=== PATIENT | male | born 1980 | race Caucasian/White ===

== ENCOUNTER 2019-03-05 19:32 | Emergency (ER) | payer MEDICARE, MEDICAID ==
[~2019-03-05] VITALS: Ht 175.3 cm; Wt 65.9 kg
[2019-03-05] MEDS ORDERED: VENL-68 PO (19:45)
[2019-03-05] MEDS ORDERED: GABA-531 PO (19:45)
[2019-03-05] MEDS ORDERED: HYDR50CA10 PO (19:45)
[2019-03-05] MEDS ORDERED: BICT1TAB PO (19:45)
[2019-03-05] MEDS ORDERED: LISI-662 PO (19:45)
[2019-03-05] MEDS ORDERED: TRAZ150 PO (19:45)
[2019-03-05] MEDS ORDERED: ONDANSETRON HCL 4 MG/2 ML VIAL IVP ONE (20:15)
[2019-03-05] MEDS ORDERED: DIPHENOXYLATE/ATROP 2.5-0.025 MG TABLET PO ONE (20:15)
[2019-03-05] MEDS ORDERED: SODIUM CHLORIDE 0.9% 1,000 ML IV ONE (20:15)
[2019-03-05 20:21] LABS: BASOPHILS % (AUTO) 0.3 % (0.0-2.0); EOSINOPHILS % (AUTO) 0.9 % (1.0-6.0); HEMATOCRIT 47.5 % (41-53); LYMPHOCYTES # (AUTO) 1.8 K/uL (1.0-4.8); LYMPHOCYTES % (AUTO) 20.4 % (22.0-44.0); MEAN CORPUSCULAR HEMOGLOBIN 32.6 pg (26.0-34.0); MEAN CORPUSCULAR HGB CONC 33.8 G/dL (31.0-37.0); MEAN CORPUSCULAR VOLUME 97 fL (80-100); MONOCYTES # (AUTO) 0.8 K/uL (0.1-1.0); MONOCYTES % (AUTO) 8.8 % (2.0-9.0); NEUTROPHILS % (AUTO) 69.6 % (40.0-70.0); PLATELET COUNT (AUTO) 307 K/uL (150-450); RED BLOOD CELL COUNT(AUTO) 4.92 MIL/uL (4.50-5.90)
[2019-03-05 20:24] LABS: APPEARANCE,URINE CLEAR (CLEAR); BILIRUBIN,URINE NEGATIVE (NEGATIVE); GLUCOSE, URINE (UA) NEGATIVE (NEGATIVE); KETONES,URINE NEGATIVE (NEGATIVE); LEUKOCYTE ESTERASE ,URINE NEGATIVE (NEGATIVE); NITRATE,URINE NEGATIVE (NEGATIVE); OCCULT BLOOD,URINE NEGATIVE (NEGATIVE); PROTEIN,URINE NEGATIVE (NEGATIVE); UROBILINOGEN,URINE 0.2 mg/dL (<=1.0)
[2019-03-05 20:33] LABS: ANION GAP 8 mmol/L (8-16); CALCIUM, TOTAL 9.9 mg/dL (8.8-10.5); CARBON DIOXIDE 30 mmol/L (22-29); CHLORIDE 99 mmol/L (98-107); CREATININE 1.07 mg/dL (0.60-1.30); GLOMERULAR FILTR. RATE CALC > 60 mL/min (>60); GLUCOSE,RANDOM 93 mg/dL (70-110); POTASSIUM 4.4 mmol/L (3.5-5.1); SODIUM SERUM 137 mmol/L (136-145); UREA NITROGEN, BLOOD 12 mg/dL (7-18)
[2019-03-05 20:41] LABS: ALANINE AMINOTRANSFERASE 24 U/L (12-78); ALBUMIN 4.3 g/dL (3.4-5.0); ALKALINE PHOSPHATASE 75 U/L (46-116); ASPARTATE AMINOTRANSFERASE 21 U/L (15-37); BILIRUBIN,TOTAL 0.2 mg/dL (0.1-1.0); LIPASE 435 U/L (73-393); TOTAL PROTEIN, SERUM 8.3 g/dL (6.4-8.2)
[2019-03-05] MEDS ORDERED: PB/HYOSCY/ATR/SCOP/LIDO/MAALOX 55 ML BOTTLE PO ONE (21:15)
[2019-03-05 22:27] VITALS: BP 129/87
== END 2019-03-05 23:03 | disposition home or self-care (01) ==
LOC: EMS 19:35
DX: R11.2 Nausea with vomiting, unspecified (principal); R19.7 Diarrhea, unspecified; I10 Essential (primary) hypertension; Z79.899 Other long term (current) drug therapy
CPT/HCPCS: 36415; 80053; 81003; 83690; 85025; 93005; 96361; 96374; 99285; J2405; J7030

== ENCOUNTER 2019-03-08 20:55 | Emergency (ER) | payer MEDICAID, MEDICARE ==
[~2019-03-08] VITALS: Ht 175.3 cm; Wt 65.9 kg
[~2019-03-08 20:55] MED LIST: BICT1TAB PO; GABA-531 PO; HYDR50CA10 PO; LISI-662 PO; TRAZ150 PO; VENL-68 PO
[2019-03-08 22:08] VITALS: BP 110/72
== END 2019-03-08 22:57 | disposition home or self-care (01) ==
LOC: EMS 20:56
DX: F41.9 Anxiety disorder, unspecified (principal); I10 Essential (primary) hypertension; F12.90 Cannabis use, unspecified, uncomplicated; F15.90 Other stimulant use, unspecified, uncomplicated

== ENCOUNTER 2020-02-23 20:39 | Inpatient (IN) | payer MEDICAID ==
[~2020-02-23] VITALS: Ht 175.3 cm; Wt 80.0 kg
[~2020-02-23 20:39] MED LIST changes: -HYDR50CA10 PO; +HYDR50CA9 PO
[2020-02-23 21:27] LABS: BASOPHILS % (AUTO) 0.7 % (0.0-2.0); EOSINOPHILS % (AUTO) 0.2 % (1.0-6.0); HEMATOCRIT 48.7 % (41-53); HEMOGLOBIN 16.4 g/dL (13.5-17.5); LYMPHOCYTES # (AUTO) 2.3 K/uL (1.0-4.8); MEAN CORPUSCULAR HEMOGLOBIN 33.2 pg (26.0-34.0); MEAN CORPUSCULAR HGB CONC 33.6 G/dL (31.0-37.0); MEAN CORPUSCULAR VOLUME 99 fL (80-100); MONOCYTES # (AUTO) 0.3 K/uL (0.1-1.0); MONOCYTES % (AUTO) 3.9 % (2.0-9.0); NEUTROPHILS # (AUTO) 4.3 K/uL (1.8-7.7); NEUTROPHILS % (AUTO) 62.2 % (40.0-70.0); PLATELET COUNT (AUTO) 261 K/uL (150-450); RED BLOOD CELL COUNT(AUTO) 4.92 MIL/uL (4.50-5.90); RED CELL DISTRIBUTION WIDTH 13.6 % (11.5-14.5)
[2020-02-23 22:02] LABS: ANION GAP 19 mmol/L (8-16); CALCIUM, TOTAL 8.7 mg/dL (8.8-10.5); CARBON DIOXIDE 22 mmol/L (22-29); CHLORIDE 103 mmol/L (98-107); CREATININE 0.97 mg/dL (0.60-1.30); GLOMERULAR FILTR. RATE CALC > 60 mL/min (>60); GLUCOSE,RANDOM 100 mg/dL (70-110); POTASSIUM 3.7 mmol/L (3.5-5.1); SODIUM SERUM 144 mmol/L (136-145); UREA NITROGEN, BLOOD 10 mg/dL (7-18)
[2020-02-23 22:07] LABS: ALANINE AMINOTRANSFERASE 40 U/L (12-78); ALBUMIN 4.4 g/dL (3.4-5.0); ALKALINE PHOSPHATASE 69 U/L (46-116); ASPARTATE AMINOTRANSFERASE 32 U/L (15-37); BILIRUBIN,TOTAL 0.2 mg/dL (0.1-1.0)
[2020-02-24] VITALS (8 sets, daily range): BP systolic 105–165; BP diastolic 76–103
[2020-02-24] MEDS ORDERED: LORazepam 2 MG TABLET PO PRN ×2 (00:15→10:00)
[2020-02-24] MEDS ORDERED: HALOPERIDOL 5 MG TABLET PO PRN (00:15)
[2020-02-24] MEDS ORDERED: ZOLPIDEM TARTRATE 10 MG TABLET PO PRN (00:15)
[2020-02-24] MEDS ORDERED: LORazepam 2 MG TABLET PO ONE (05:15)
[2020-02-24] MEDS: LISINOPRIL 20 MG TABLET PO SCH (12:01)
[2020-02-24] MEDS: GABAPENTIN 300 MG CAPSULE PO SCH ×2 (12:01→16:20)
[2020-02-24] MEDS: HydrOXYzine PAMOATE 50 MG CAPSULE PO SCH ×2 (12:01→16:20)
[2020-02-24] MEDS: TOPIRAMATE 25 MG TABLET PO SCH (16:19)
[2020-02-24] MEDS ORDERED: TraZODone HCL 150 MG TABLET PO SCH (21:00)
[2020-02-24] MEDS ORDERED: VENLAFAXINE HCL 150 MG ER CAPSULE PO SCH (21:00)
[2020-02-25 00:25] VITALS: BP 140/72
[2020-02-25 04:25] VITALS: BP 122/83
[2020-02-25] MEDS ORDERED: LORazepam 2 MG TABLET PO PRN (07:00)
[2020-02-25 08:23] VITALS: BP 160/87
[2020-02-25 08:30] VITALS: BP 160/87
[2020-02-25] MEDS ORDERED: ACETAMINOPHEN 325 MG TABLET PO PRN (08:30)
[2020-02-25] MEDS ORDERED: DOCUSATE SODIUM 100 MG CAPSULE PO PRN (08:30)
[2020-02-25] MEDS ORDERED: GuaiFENesin/D-METHORPHAN [SUGAR-FREE] 200-20MG/10 ML SYRUP UDCUP PO PRN (08:30)
[2020-02-25] MEDS ORDERED: NICOTINE 14 MG/24 HOUR PATCH TD PRN (08:30)
[2020-02-25] MEDS ORDERED: IBUPROFEN 400 MG TABLET PO PRN (08:30)
[2020-02-25] MEDS ORDERED: ONDANSETRON HCL 4 MG TABLET PO PRN (08:30)
[2020-02-25] MEDS ORDERED: ALBUTEROL SULFATE HFA 90 MCG/PUFF 8 GM INHALER IH PRN (08:30)
[2020-02-25] MEDS ORDERED: CloNIDine HCL 0.1 MG TABLET PO PRN (08:30)
[2020-02-25] MEDS ORDERED: MAG HYDROX/AL HYDROX/SIMETH ES 30 ML SUSPENSION UDCUP PO PRN (08:30)
[2020-02-25] MEDS ORDERED: MAGNESIUM HYDROXIDE SUSPENSION 30 ML UDCUP PO PRN (08:30)
[2020-02-25] MEDS ORDERED: LOPERAMIDE HCL 2 MG CAPSULE PO PRN (08:30)
[2020-02-25] MEDS ORDERED: PETROLATUM,WHITE 28 GM JELLY TP PRN (08:30)
[2020-02-25] MEDS: GABAPENTIN 300 MG CAPSULE PO SCH ×3 (08:51→16:22)
[2020-02-25] MEDS: LORazepam 2 MG TABLET PO SCH ×4 (08:51→20:20)
[2020-02-25] MEDS: HydrOXYzine PAMOATE 50 MG CAPSULE PO SCH ×3 (08:51→16:22)
[2020-02-25] MEDS: TOPIRAMATE 25 MG TABLET PO SCH ×2 (08:52→16:22)
[2020-02-25] MEDS: LISINOPRIL 20 MG TABLET PO SCH (08:52)
[2020-02-25] MEDS ORDERED: LISINOPRIL 20 MG TABLET PO SCH (09:00)
[2020-02-25 09:43] LABS: CHOL/HDL RATIO 3.6 (4.2-7.3)
[2020-02-25] MEDS: BICTEGRAV/EMTRICIT/TENOFOV ALA 50-200-25 MG TABLET PO SCH (15:26)
[2020-02-25 17:29] VITALS: BP 108/76
[2020-02-25 20:01] VITALS: BP 108/76
[2020-02-25] MEDS: TraZODone HCL 100 MG TABLET PO SCH (20:20)
[2020-02-26 01:28] VITALS: BP 99/70
[2020-02-26 08:08] VITALS: BP 125/82
[2020-02-26 08:39] VITALS: BP 125/82
[2020-02-26] MEDS: TOPIRAMATE 25 MG TABLET PO SCH ×2 (09:03→17:24)
[2020-02-26] MEDS: LISINOPRIL 20 MG TABLET PO SCH (09:03)
[2020-02-26] MEDS: GABAPENTIN 300 MG CAPSULE PO SCH ×3 (09:03→17:24)
[2020-02-26] MEDS: BICTEGRAV/EMTRICIT/TENOFOV ALA 50-200-25 MG TABLET PO SCH (09:03)
[2020-02-26] MEDS: FLUoxetine HCL 20 MG CAPSULE PO SCH (09:04)
[2020-02-26] MEDS: LORazepam 2 MG TABLET PO SCH ×4 (09:04→20:31)
[2020-02-26] MEDS: HydrOXYzine PAMOATE 50 MG CAPSULE PO SCH ×3 (09:04→17:24)
[2020-02-26 17:20] VITALS: BP 108/74
[2020-02-26 19:18] VITALS: BP 102/62
[2020-02-26] MEDS: TraZODone HCL 100 MG TABLET PO SCH (20:31)
[2020-02-27 00:08] VITALS: BP 100/68
[2020-02-27 00:09] VITALS: BP 100/68
[2020-02-27] MEDS ORDERED: LORazepam 1 MG TABLET PO PRN (07:00)
[2020-02-27] MEDS: FLUoxetine HCL 20 MG CAPSULE PO SCH (08:44)
[2020-02-27] MEDS: TOPIRAMATE 25 MG TABLET PO SCH (08:44)
[2020-02-27] MEDS: HydrOXYzine PAMOATE 50 MG CAPSULE PO SCH (08:44)
[2020-02-27] MEDS: GABAPENTIN 300 MG CAPSULE PO SCH (08:44)
[2020-02-27] MEDS: LISINOPRIL 20 MG TABLET PO SCH (08:44)
[2020-02-27] MEDS: BICTEGRAV/EMTRICIT/TENOFOV ALA 50-200-25 MG TABLET PO SCH (08:45)
[2020-02-27] MEDS ORDERED: LORazepam 1 MG TABLET PO SCH (09:00)
[2020-02-27 09:01] VITALS: BP 112/79
[2020-02-27] MEDS ORDERED: FLUO-191 PO (09:51)
[2020-02-27] MEDS ORDERED: TOPI25 PO (09:51)
[2020-02-27] MEDS ORDERED: TRAZ-257 PO (09:52)
[2020-02-28] MEDS ORDERED: LORazepam 1 MG TABLET PO PRN (07:00)
== END 2020-02-27 14:27 | disposition home or self-care (01) | DRG 754 ==
LOC: EMS 20:41 → B2S 02-24 08:02
PROVIDERS: ADMIT Psychiatry & Neurology Psychiatry; ATTEND Psychiatry & Neurology Psychiatry
DX: F32.9 Major depressive disorder, single episode, unspecified (principal); R45.851 Suicidal ideations; G62.9 Polyneuropathy, unspecified; K75.9 Inflammatory liver disease, unspecified; I10 Essential (primary) hypertension; F12.90 Cannabis use, unspecified, uncomplicated; F15.90 Other stimulant use, unspecified, uncomplicated; F10.10 Alcohol abuse, uncomplicated; E78.5 Hyperlipidemia, unspecified; F19.10 Other psychoactive substance abuse, uncomplicated; Z21 Asymptomatic human immunodeficiency virus [HIV] infection status; Y90.8 Blood alcohol level of 240 mg/100 ml or more; Z91.5 Personal history of self-harm
CPT/HCPCS: 87081; G0480

== ENCOUNTER 2020-08-15 13:22 | Inpatient (IN) | payer MEDICAID ==
[~2020-08-15] VITALS: Ht 170.2 cm; Wt 77.5 kg
[~2020-08-15 13:22] MED LIST changes: +FLUO-191 PO; +GABA-1181 PO; -GABA-531 PO; -HYDR50CA9 PO; +TOPI25 PO; +TRAZ-257 PO; -TRAZ150 PO; -VENL-68 PO
[2020-08-15 14:44] LABS: BASOPHILS % (AUTO) 0.7 % (0.0-2.0); EOSINOPHILS % (AUTO) 0.1 % (1.0-6.0); HEMATOCRIT 47.4 % (41-53); LYMPHOCYTES # (AUTO) 2.1 K/uL (1.0-4.8); LYMPHOCYTES % (AUTO) 47.6 % (22.0-44.0); MEAN CORPUSCULAR HEMOGLOBIN 34.5 pg (26.0-34.0); MEAN CORPUSCULAR HGB CONC 33.8 G/dL (31.0-37.0); MEAN CORPUSCULAR VOLUME 102 fL (80-100); MONOCYTES # (AUTO) 0.3 K/uL (0.1-1.0); MONOCYTES % (AUTO) 6.2 % (2.0-9.0); NEUTROPHILS % (AUTO) 45.4 % (40.0-70.0); PLATELET COUNT (AUTO) 351 K/uL (150-450); RED BLOOD CELL COUNT(AUTO) 4.64 MIL/uL (4.50-5.90); RED CELL DISTRIBUTION WIDTH 13.6 % (11.5-14.5)
[2020-08-15 14:57] LABS: ANION GAP 15 mmol/L (8-16); CALCIUM, TOTAL 8.2 mg/dL (8.8-10.5); CARBON DIOXIDE 24 mmol/L (22-29); CHLORIDE 104 mmol/L (98-107); CREATININE 0.86 mg/dL (0.60-1.30); GLOMERULAR FILTR. RATE CALC > 60 mL/min (>60); GLUCOSE,RANDOM 105 mg/dL (70-110); POTASSIUM 3.9 mmol/L (3.5-5.1); SODIUM SERUM 143 mmol/L (136-145); UREA NITROGEN, BLOOD 4 mg/dL (7-18)
[2020-08-15 15:10] LABS: ALANINE AMINOTRANSFERASE 85 U/L (12-78); ALBUMIN 4.2 g/dL (3.4-5.0); ALKALINE PHOSPHATASE 79 U/L (46-116); ASPARTATE AMINOTRANSFERASE 83 U/L (15-37); BILIRUBIN,TOTAL 0.4 mg/dL (0.1-1.0); TOTAL PROTEIN, SERUM 7.9 g/dL (6.4-8.2)
[2020-08-15 15:12] LABS: AMPHET/METH SCREEN,URINE NEGATIVE (NEGATIVE); BARBITURATE SCREEN, URINE NEGATIVE (NEGATIVE); BENZODIAZEPINES SCREEN,URINE NEGATIVE (NEGATIVE); CANNABINOID SCREEN,URINE POSITIVE (NEGATIVE); COCAINE SCREEN,URINE NEGATIVE (NEGATIVE); METHADONE SCREEN, URINE NEGATIVE (NEGATIVE); OPIATE SCREEN,URINE NEGATIVE (NEGATIVE)
[2020-08-15 15:14] LABS: PHENCYCLIDINE SCREEN,URINE NEGATIVE (NEGATIVE)
[2020-08-15 15:26] LABS: ACETAMINOPHEN < 2 mcg/mL (10-30); SALICYLATE 1.8 mg/dL (2.8-20.0)
[2020-08-15] MEDS ORDERED: SODIUM CHLORIDE 0.9% 1,000 ML IV ONE (15:45)
[2020-08-15 16:27] LABS: COVID AG,FIA SOURCE NASOPHARYNGEAL
[2020-08-15] MEDS ORDERED: HALOPERIDOL 5 MG TABLET PO PRN (19:00)
[2020-08-15] MEDS ORDERED: LORazepam 2 MG/ML VIAL IVP ONE (20:45)
[2020-08-16] VITALS (10 sets, daily range): BP systolic 127–156; BP diastolic 65–99
[2020-08-16] MEDS: LORazepam 2 MG TABLET PO PRN ×4 (01:56→18:15)
[2020-08-16] MEDS: ZOLPIDEM TARTRATE 10 MG TABLET PO PRN ×2 (02:40→20:22)
[2020-08-16] MEDS ORDERED: LOPERAMIDE HCL 2 MG CAPSULE PO PRN (08:30)
[2020-08-16] MEDS ORDERED: ACETAMINOPHEN 325 MG TABLET PO PRN (08:30)
[2020-08-16] MEDS ORDERED: ONDANSETRON HCL 4 MG TABLET PO PRN (08:30)
[2020-08-16] MEDS ORDERED: MAGNESIUM HYDROXIDE SUSPENSION 30 ML UDCUP PO PRN (08:30)
[2020-08-16] MEDS ORDERED: CloNIDine HCL 0.1 MG TABLET PO PRN (08:30)
[2020-08-16] MEDS ORDERED: MAG HYDROX/AL HYDROX/SIMETH ES 30 ML SUSPENSION UDCUP PO PRN (08:30)
[2020-08-16] MEDS ORDERED: BACITRACIN 28 GM OINTMENT TP PRN (08:30)
[2020-08-16] MEDS ORDERED: IBUPROFEN 600 MG TABLET PO PRN (08:30)
[2020-08-16] MEDS ORDERED: DOCUSATE SODIUM 100 MG CAPSULE PO PRN (08:30)
[2020-08-16] MEDS ORDERED: PETROLATUM,WHITE 28 GM JELLY TP PRN (08:30)
[2020-08-16] MEDS ORDERED: ALBUTEROL SULFATE HFA 90 MCG/PUFF 8 GM INHALER IH PRN (08:30)
[2020-08-16] MEDS ORDERED: OMEPRAZOLE 20 MG CAPSULE PO PRN (08:30)
[2020-08-16] MEDS ORDERED: BENZOCAINE/MENTHOL LOZENGE PO PRN (08:30)
[2020-08-16] MEDS ORDERED: LISINOPRIL 10 MG TABLET PO SCH (09:00)
[2020-08-16] MEDS: FOLIC ACID 1 MG TABLET PO SCH (11:07)
[2020-08-16] MEDS: AmLODIPine BESYLATE 5 MG TABLET PO SCH (11:07)
[2020-08-16] MEDS: LISINOPRIL 20 MG TABLET PO SCH (11:07)
[2020-08-16] MEDS: THIAMINE 100 MG TABLET PO SCH (11:08)
[2020-08-16] MEDS ORDERED: ChlordiazePOXIDE HCL 25 MG CAPSULE PO PRN (20:45)
[2020-08-17] VITALS (7 sets, daily range): BP systolic 10–157; BP diastolic 83–100
[2020-08-17] MEDS: ChlordiazePOXIDE HCL 25 MG CAPSULE PO PRN ×2 (06:42→19:32)
[2020-08-17] MEDS: BICTEGRAV/EMTRICIT/TENOFOV ALA 50-200-25 MG TABLET PO SCH (08:53)
[2020-08-17] MEDS: CITALOPRAM HYDROBROMIDE 20 MG TABLET PO SCH (08:54)
[2020-08-17] MEDS: AmLODIPine BESYLATE 5 MG TABLET PO SCH (08:54)
[2020-08-17] MEDS: ChlordiazePOXIDE HCL 25 MG CAPSULE PO SCH ×4 (08:54→21:46)
[2020-08-17] MEDS: LISINOPRIL 20 MG TABLET PO SCH (08:54)
[2020-08-17] MEDS: THIAMINE 100 MG TABLET PO SCH (08:54)
[2020-08-17] MEDS: FOLIC ACID 1 MG TABLET PO SCH (08:54)
[2020-08-18] MEDS: ZOLPIDEM TARTRATE 10 MG TABLET PO PRN ×2 (00:05→21:37)
[2020-08-18] MEDS: ChlordiazePOXIDE HCL 25 MG CAPSULE PO PRN (00:14)
[2020-08-18 00:18] VITALS: BP 146/105
[2020-08-18 00:21] VITALS: BP 146/105
[2020-08-18 08:51] VITALS: BP 136/81
[2020-08-18] MEDS: FOLIC ACID 1 MG TABLET PO SCH (09:06)
[2020-08-18] MEDS: LISINOPRIL 20 MG TABLET PO SCH (09:06)
[2020-08-18] MEDS: ChlordiazePOXIDE HCL 25 MG CAPSULE PO SCH ×4 (09:06→20:12)
[2020-08-18] MEDS: CITALOPRAM HYDROBROMIDE 20 MG TABLET PO SCH (09:06)
[2020-08-18] MEDS: AmLODIPine BESYLATE 5 MG TABLET PO SCH (09:06)
[2020-08-18] MEDS: BICTEGRAV/EMTRICIT/TENOFOV ALA 50-200-25 MG TABLET PO SCH (09:06)
[2020-08-18] MEDS: THIAMINE 100 MG TABLET PO SCH (09:07)
[2020-08-18 16:13] VITALS: BP 122/76
[2020-08-18 16:42] VITALS: BP 122/76
[2020-08-19 00:58] VITALS: BP 126/73
[2020-08-19] MEDS ORDERED: ChlordiazePOXIDE HCL 10 MG CAPSULE PO PRN (07:00)
[2020-08-19] MEDS ORDERED: CITA-144 PO (08:27)
[2020-08-19] MEDS ORDERED: AMLO-257 PO (08:27)
[2020-08-19] MEDS ORDERED: LISI-662 PO (08:27)
[2020-08-19] MEDS: BICTEGRAV/EMTRICIT/TENOFOV ALA 50-200-25 MG TABLET PO SCH (09:33)
[2020-08-19] MEDS: AmLODIPine BESYLATE 5 MG TABLET PO SCH (09:34)
[2020-08-19] MEDS: ChlordiazePOXIDE HCL 10 MG CAPSULE PO SCH ×4 (09:35→20:18)
[2020-08-19] MEDS: THIAMINE 100 MG TABLET PO SCH (09:36)
[2020-08-19] MEDS: CITALOPRAM HYDROBROMIDE 20 MG TABLET PO SCH (09:36)
[2020-08-19] MEDS: FOLIC ACID 1 MG TABLET PO SCH (09:36)
[2020-08-19] MEDS: LISINOPRIL 20 MG TABLET PO SCH (09:36)
[2020-08-19 09:38] VITALS: BP 122/81
[2020-08-19 12:47] VITALS: BP 100/68
[2020-08-19 16:15] VITALS: BP 116/78
[2020-08-19 18:39] VITALS: BP 117/66
[2020-08-19] MEDS: ZOLPIDEM TARTRATE 10 MG TABLET PO PRN (21:59)
[2020-08-20 00:34] VITALS: BP 122/74
[2020-08-20] MEDS ORDERED: ChlordiazePOXIDE HCL 10 MG CAPSULE PO PRN (07:00)
[2020-08-20] MEDS: FOLIC ACID 1 MG TABLET PO SCH (09:00)
[2020-08-20] MEDS: BICTEGRAV/EMTRICIT/TENOFOV ALA 50-200-25 MG TABLET PO SCH (09:00)
[2020-08-20] MEDS: LISINOPRIL 20 MG TABLET PO SCH (09:01)
[2020-08-20] MEDS: AmLODIPine BESYLATE 5 MG TABLET PO SCH (09:01)
[2020-08-20] MEDS: THIAMINE 100 MG TABLET PO SCH (09:01)
[2020-08-20] MEDS: CITALOPRAM HYDROBROMIDE 20 MG TABLET PO SCH (09:04)
== END 2020-08-20 19:43 | disposition home or self-care (01) | DRG 754 ==
LOC: EMS 13:25 → B2S 18:54
PROVIDERS: ADMIT Psychiatry & Neurology Psychiatry; ATTEND Psychiatry & Neurology Psychiatry
DX: F32.9 Major depressive disorder, single episode, unspecified (principal); F10.129 Alcohol abuse with intoxication, unspecified; Y90.9 Presence of alcohol in blood, level not specified; Z21 Asymptomatic human immunodeficiency virus [HIV] infection status; B19.20 Unspecified viral hepatitis C without hepatic coma; I10 Essential (primary) hypertension; K59.00 Constipation, unspecified; F41.9 Anxiety disorder, unspecified; G47.00 Insomnia, unspecified; F12.90 Cannabis use, unspecified, uncomplicated; K21.9 Gastro-esophageal reflux disease without esophagitis; T43.212A Poisoning by selective serotonin and norepinephrine reuptake inhibitors, intentional self-harm, initial encounter; Y92.89 Other specified places as the place of occurrence of the external cause; Z03.818 Encounter for observation for suspected exposure to other biological agents ruled out
CPT/HCPCS: 87081; 87426; 93005; G0480; G0481; J2060; Q0162

== ENCOUNTER 2020-09-05 11:16 | Emergency (ER) | payer MEDICAID ==
[~2020-09-05] VITALS: Ht 167.6 cm; Wt 90.0 kg
[~2020-09-05 11:16] MED LIST changes: +AMLO-257 PO; +CITA-144 PO; -FLUO-191 PO; -GABA-1181 PO; -TOPI25 PO; -TRAZ-257 PO
[2020-09-05 14:45] VITALS: BP 126/87
[2020-09-05 19:21] LABS: GLUCOSE,POINT OF CARE 136 MG/DL (70-110)
== END 2020-09-05 14:45 | disposition home or self-care (01) ==
LOC: EMS 11:20
DX: F10.229 Alcohol dependence with intoxication, unspecified (principal); I10 Essential (primary) hypertension; Z79.899 Other long term (current) drug therapy; Y90.6 Blood alcohol level of 120-199 mg/100 ml

== ENCOUNTER 2020-09-16 22:10 | Inpatient (IN) | payer MEDICAID ==
[~2020-09-16] VITALS: Ht 175.3 cm; Wt 79.7 kg
[2020-09-16] MEDS ORDERED: TRAZ-252 PO (22:27)
[2020-09-16] MEDS ORDERED: TOPI25 PO (22:27)
[2020-09-16] MEDS ORDERED: GABA-1216 PO (22:27)
[2020-09-16 22:46] LABS: COVID AG,FIA SOURCE NASOPHARYNGEAL
[2020-09-16 22:50] LABS: BASOPHILS % (AUTO) 0.6 % (0.0-2.0); EOSINOPHILS % (AUTO) 0.4 % (1.0-6.0); HEMATOCRIT 43.1 % (41-53); HEMOGLOBIN 14.6 g/dL (13.5-17.5); LYMPHOCYTES # (AUTO) 2.5 K/uL (1.0-4.8); LYMPHOCYTES % (AUTO) 52.6 % (22.0-44.0); MEAN CORPUSCULAR HEMOGLOBIN 34.5 pg (26.0-34.0); MEAN CORPUSCULAR HGB CONC 33.8 G/dL (31.0-37.0); MEAN CORPUSCULAR VOLUME 102 fL (80-100); MONOCYTES # (AUTO) 0.5 K/uL (0.1-1.0); MONOCYTES % (AUTO) 9.6 % (2.0-9.0); NEUTROPHILS # (AUTO) 1.8 K/uL (1.8-7.7); NEUTROPHILS % (AUTO) 36.8 % (40.0-70.0); PLATELET COUNT (AUTO) 196 K/uL (150-450); RED BLOOD CELL COUNT(AUTO) 4.21 MIL/uL (4.50-5.90); RED CELL DISTRIBUTION WIDTH 12.4 % (11.5-14.5)
[2020-09-16 23:10] LABS: ALANINE AMINOTRANSFERASE 62 U/L (12-78); ALBUMIN 3.7 g/dL (3.4-5.0); ALKALINE PHOSPHATASE 92 U/L (46-116); ANION GAP 14 mmol/L (8-16); ASPARTATE AMINOTRANSFERASE 54 U/L (15-37); BILIRUBIN,TOTAL 0.3 mg/dL (0.1-1.0); CALCIUM, TOTAL 8.5 mg/dL (8.8-10.5); CARBON DIOXIDE 27 mmol/L (22-29); CHLORIDE 102 mmol/L (98-107); CREATININE 1.07 mg/dL (0.60-1.30); GLOMERULAR FILTR. RATE CALC > 60 mL/min (>60); GLUCOSE,RANDOM 152 mg/dL (70-110); SODIUM SERUM 143 mmol/L (136-145); TOTAL PROTEIN, SERUM 7.3 g/dL (6.4-8.2); UREA NITROGEN, BLOOD 9 mg/dL (7-18)
[2020-09-16 23:24] LABS: ACETAMINOPHEN < 2 mcg/mL (10-30)
[2020-09-16] MEDS ORDERED: POTASSIUM CHLORIDE 10% 40 MEQ/30 ML LIQUID UDCUP PO ONE (23:30)
[2020-09-16] MEDS ORDERED: NALOXONE HCL 1 MG/ML 2 ML SYG IVP ONE (23:45)
[2020-09-16 23:50] LABS: SALICYLATE 1.3 mg/dL (2.8-20.0)
[2020-09-17 00:06] LABS: AMPHET/METH SCREEN,URINE NEGATIVE (NEGATIVE); BARBITURATE SCREEN, URINE NEGATIVE (NEGATIVE); BENZODIAZEPINES SCREEN,URINE POSITIVE (NEGATIVE); CANNABINOID SCREEN,URINE POSITIVE (NEGATIVE); COCAINE SCREEN,URINE NEGATIVE (NEGATIVE); METHADONE SCREEN, URINE NEGATIVE (NEGATIVE); OPIATE SCREEN,URINE NEGATIVE (NEGATIVE)
[2020-09-17 00:11] LABS: PHENCYCLIDINE SCREEN,URINE NEGATIVE (NEGATIVE)
[2020-09-17] MEDS ORDERED: HALOPERIDOL 5 MG TABLET PO PRN (03:15)
[2020-09-17] MEDS: LORazepam 2 MG TABLET PO PRN ×4 (04:15→18:39)
[2020-09-17 04:23] LABS: APPEARANCE,URINE CLEAR (CLEAR); BILIRUBIN,URINE NEGATIVE (NEGATIVE); GLUCOSE, URINE (UA) NEGATIVE (NEGATIVE); KETONES,URINE NEGATIVE (NEGATIVE); LEUKOCYTE ESTERASE ,URINE NEGATIVE (NEGATIVE); NITRATE,URINE NEGATIVE (NEGATIVE); OCCULT BLOOD,URINE NEGATIVE (NEGATIVE); PROTEIN,URINE NEGATIVE (NEGATIVE)
[2020-09-17] MEDS ORDERED: LOPERAMIDE HCL 2 MG CAPSULE PO PRN (08:15)
[2020-09-17] MEDS ORDERED: POTASSIUM CHLORIDE 20 MEQ ER TABLET PO ONE (08:15)
[2020-09-17] MEDS ORDERED: ACETAMINOPHEN 325 MG TABLET PO PRN (08:15)
[2020-09-17] MEDS ORDERED: CloNIDine HCL 0.1 MG TABLET PO PRN (08:15)
[2020-09-17] MEDS ORDERED: PETROLATUM,WHITE 28 GM JELLY TP PRN (08:15)
[2020-09-17] MEDS ORDERED: MAGNESIUM HYDROXIDE SUSPENSION 30 ML UDCUP PO PRN (08:15)
[2020-09-17] MEDS ORDERED: ONDANSETRON HCL 4 MG TABLET PO PRN (08:15)
[2020-09-17] MEDS ORDERED: ALBUTEROL SULFATE HFA 90 MCG/PUFF 8 GM INHALER IH PRN (08:15)
[2020-09-17] MEDS ORDERED: BACITRACIN 28 GM OINTMENT TP PRN (08:15)
[2020-09-17] MEDS ORDERED: IBUPROFEN 600 MG TABLET PO PRN (08:15)
[2020-09-17] MEDS ORDERED: BENZOCAINE/MENTHOL LOZENGE PO PRN (08:15)
[2020-09-17] MEDS ORDERED: MAG HYDROX/AL HYDROX/SIMETH ES 30 ML SUSPENSION UDCUP PO PRN (08:15)
[2020-09-17] MEDS: DOCUSATE SODIUM 100 MG CAPSULE PO SCH (09:00)
[2020-09-17] MEDS: OMEPRAZOLE 20 MG CAPSULE PO SCH (09:00)
[2020-09-17 10:15] VITALS: BP 154/95
[2020-09-17] MEDS ORDERED: PNEUMOCOCCAL VACCINE POLYVALENT 0.5 ML VIAL [PPSV23] IM ONE (11:45)
[2020-09-17 15:30] VITALS: BP 158/104
[2020-09-17 16:30] VITALS: BP 145/84
[2020-09-18] VITALS (7 sets, daily range): BP systolic 138–154; BP diastolic 80–105
[2020-09-18] MEDS: LORazepam 2 MG TABLET PO PRN ×3 (05:19→22:07)
[2020-09-18 07:03] LABS: CHOL/HDL RATIO 2.5 (4.2-7.3); POTASSIUM 3.9 mmol/L (3.5-5.1)
[2020-09-18] MEDS: CITALOPRAM HYDROBROMIDE 20 MG TABLET PO SCH (09:19)
[2020-09-18] MEDS: LISINOPRIL 20 MG TABLET PO SCH (09:19)
[2020-09-18] MEDS: OMEPRAZOLE 20 MG CAPSULE PO SCH (09:19)
[2020-09-18] MEDS: AmLODIPine BESYLATE 5 MG TABLET PO SCH (09:20)
[2020-09-18] MEDS: LevETIRAcetam 500 MG TABLET PO SCH ×2 (09:20→16:50)
[2020-09-18] MEDS: BICTEGRAV/EMTRICIT/TENOFOV ALA 50-200-25 MG TABLET PO SCH (09:20)
[2020-09-18] MEDS: GABAPENTIN 300 MG CAPSULE PO SCH ×2 (09:20→16:50)
[2020-09-18] MEDS: DOCUSATE SODIUM 100 MG CAPSULE PO SCH (09:20)
[2020-09-18] MEDS ORDERED: ChlordiazePOXIDE HCL 25 MG CAPSULE ONE (20:38)
[2020-09-19 01:45] VITALS: BP 141/89
[2020-09-19] MEDS: LORazepam 2 MG TABLET PO PRN (02:29)
[2020-09-19] MEDS: ZOLPIDEM TARTRATE 10 MG TABLET PO PRN ×2 (02:29→21:55)
[2020-09-19 05:45] VITALS: BP 128/91
[2020-09-19] MEDS ORDERED: ChlordiazePOXIDE HCL 25 MG CAPSULE PO PRN (07:00)
[2020-09-19] MEDS: BICTEGRAV/EMTRICIT/TENOFOV ALA 50-200-25 MG TABLET PO SCH (08:19)
[2020-09-19] MEDS: LISINOPRIL 20 MG TABLET PO SCH (08:21)
[2020-09-19] MEDS: GABAPENTIN 300 MG CAPSULE PO SCH ×2 (08:21→16:21)
[2020-09-19] MEDS: DOCUSATE SODIUM 100 MG CAPSULE PO SCH (08:21)
[2020-09-19] MEDS: LevETIRAcetam 500 MG TABLET PO SCH ×2 (08:22→16:21)
[2020-09-19] MEDS: AmLODIPine BESYLATE 5 MG TABLET PO SCH (08:22)
[2020-09-19] MEDS: CITALOPRAM HYDROBROMIDE 20 MG TABLET PO SCH (08:22)
[2020-09-19] MEDS: OMEPRAZOLE 20 MG CAPSULE PO SCH (08:22)
[2020-09-19] MEDS: ChlordiazePOXIDE HCL 25 MG CAPSULE PO SCH ×4 (08:23→20:00)
[2020-09-19 09:17] VITALS: BP 144/105
[2020-09-19 09:45] VITALS: BP 146/107
[2020-09-19 13:45] VITALS: BP 139/89
[2020-09-19 17:00] VITALS: BP 152/94
[2020-09-20 06:50] VITALS: BP 131/86
[2020-09-20] MEDS: LevETIRAcetam 500 MG TABLET PO SCH (08:28)
[2020-09-20] MEDS: CITALOPRAM HYDROBROMIDE 20 MG TABLET PO SCH (08:29)
[2020-09-20] MEDS: ChlordiazePOXIDE HCL 25 MG CAPSULE PO SCH ×2 (08:29→12:24)
[2020-09-20] MEDS: DOCUSATE SODIUM 100 MG CAPSULE PO SCH (08:29)
[2020-09-20] MEDS: LISINOPRIL 20 MG TABLET PO SCH (08:29)
[2020-09-20] MEDS: GABAPENTIN 300 MG CAPSULE PO SCH (08:29)
[2020-09-20] MEDS: OMEPRAZOLE 20 MG CAPSULE PO SCH (08:30)
[2020-09-20] MEDS: BICTEGRAV/EMTRICIT/TENOFOV ALA 50-200-25 MG TABLET PO SCH (08:30)
[2020-09-20] MEDS: AmLODIPine BESYLATE 5 MG TABLET PO SCH (08:30)
[2020-09-20] MEDS ORDERED: CITA-144 PO (11:40)
[2020-09-20] MEDS ORDERED: DOCU-275 PO (11:42)
[2020-09-20] MEDS ORDERED: LEVE500T53 PO (11:42)
[2020-09-20] MEDS ORDERED: OMEP20 PO (11:42)
[2020-09-21] MEDS ORDERED: ChlordiazePOXIDE HCL 10 MG CAPSULE PO PRN (07:00)
[2020-09-21] MEDS ORDERED: ChlordiazePOXIDE HCL 10 MG CAPSULE PO SCH (09:00)
[2020-09-22] MEDS ORDERED: ChlordiazePOXIDE HCL 10 MG CAPSULE PO PRN (07:00)
== END 2020-09-20 12:45 | disposition home or self-care (01) | DRG 754 ==
LOC: EMS 22:10 → 3EI 09-17 03:14
PROVIDERS: ADMIT Psychiatry & Neurology Psychiatry; ATTEND Psychiatry & Neurology Psychiatry
DX: F32.9 Major depressive disorder, single episode, unspecified (principal); I10 Essential (primary) hypertension; F12.90 Cannabis use, unspecified, uncomplicated; T50.902A Poisoning by unspecified drugs, medicaments and biological substances, intentional self-harm, initial encounter; E87.6 Hypokalemia; K21.9 Gastro-esophageal reflux disease without esophagitis; K59.00 Constipation, unspecified; F41.9 Anxiety disorder, unspecified; G47.00 Insomnia, unspecified; B18.2 Chronic viral hepatitis C; Z20.828 Contact with and (suspected) exposure to other viral communicable diseases; Y92.89 Other specified places as the place of occurrence of the external cause
CPT/HCPCS: 83036; 84132; 87426; 93005; 99291; G0480; G0481; J2310

== ENCOUNTER 2020-10-24 13:46 | Inpatient (IN) | payer MEDICAID ==
[~2020-10-24] VITALS: Ht 175.3 cm; Wt 78.0 kg
[~2020-10-24 13:46] MED LIST changes: +DOCU-275 PO; +GABA-1216 PO; +LEVE500T53 PO; +OMEP20 PO
[2020-10-24 15:15] LABS: BASOPHILS % (AUTO) 0.4 % (0.0-2.0); EOSINOPHILS % (AUTO) 0 % (1.0-6.0); HEMATOCRIT 49.7 % (41-53); HEMOGLOBIN 16.9 g/dL (13.5-17.5); LYMPHOCYTES # (AUTO) 2.1 K/uL (1.0-4.8); LYMPHOCYTES % (AUTO) 44.4 % (22.0-44.0); MEAN CORPUSCULAR HEMOGLOBIN 34.1 pg (26.0-34.0); MEAN CORPUSCULAR HGB CONC 34.1 G/dL (31.0-37.0); MEAN CORPUSCULAR VOLUME 100 fL (80-100); MONOCYTES # (AUTO) 0.5 K/uL (0.1-1.0); MONOCYTES % (AUTO) 9.6 % (2.0-9.0); NEUTROPHILS # (AUTO) 2.2 K/uL (1.8-7.7); NEUTROPHILS % (AUTO) 45.6 % (40.0-70.0); PLATELET COUNT (AUTO) 250 K/uL (150-450); RED BLOOD CELL COUNT(AUTO) 4.96 MIL/uL (4.50-5.90); RED CELL DISTRIBUTION WIDTH 12.4 % (11.5-14.5)
[2020-10-24 15:25] LABS: ANION GAP 12 mmol/L (8-16); CALCIUM, TOTAL 7.7 mg/dL (8.8-10.5); CARBON DIOXIDE 25 mmol/L (22-29); CHLORIDE 97 mmol/L (98-107); GLOMERULAR FILTR. RATE CALC > 60 mL/min (>60); GLUCOSE,RANDOM 118 mg/dL (70-110); POTASSIUM 3.7 mmol/L (3.5-5.1); SODIUM SERUM 134 mmol/L (136-145); UREA NITROGEN, BLOOD 9 mg/dL (7-18)
[2020-10-24 15:30] LABS: ALANINE AMINOTRANSFERASE 164 U/L (12-78); ALBUMIN 3.9 g/dL (3.4-5.0); ALKALINE PHOSPHATASE 91 U/L (46-116); ASPARTATE AMINOTRANSFERASE 156 U/L (15-37); BILIRUBIN,TOTAL 0.4 mg/dL (0.1-1.0); TOTAL PROTEIN, SERUM 8.1 g/dL (6.4-8.2)
[2020-10-24 15:33] LABS: ACETAMINOPHEN < 2 mcg/mL (10-30); SALICYLATE 1.1 mg/dL (2.8-20.0)
[2020-10-24 15:38] LABS: COVID AG,FIA SOURCE NASOPHARYNGEAL
[2020-10-24] MEDS ORDERED: HALOPERIDOL 5 MG TABLET PO PRN (19:00)
[2020-10-24] MEDS: LORazepam 2 MG TABLET PO PRN (20:21)
[2020-10-24 21:24] LABS: APPEARANCE,URINE CLEAR (CLEAR); BILIRUBIN,URINE NEGATIVE (NEGATIVE); GLUCOSE, URINE (UA) NEGATIVE (NEGATIVE); KETONES,URINE NEGATIVE (NEGATIVE); LEUKOCYTE ESTERASE ,URINE NEGATIVE (NEGATIVE); NITRATE,URINE NEGATIVE (NEGATIVE); OCCULT BLOOD,URINE SMALL (NEGATIVE); PH,URINE 5.5 (5.0-8.0); PROTEIN,URINE SEE CONFIRM (NEGATIVE)
[2020-10-24 21:29] LABS: AMPHET/METH SCREEN,URINE NEGATIVE (NEGATIVE); BARBITURATE SCREEN, URINE NEGATIVE (NEGATIVE); BENZODIAZEPINES SCREEN,URINE POSITIVE (NEGATIVE); CANNABINOID SCREEN,URINE NEGATIVE (NEGATIVE); COCAINE SCREEN,URINE NEGATIVE (NEGATIVE); METHADONE SCREEN, URINE NEGATIVE (NEGATIVE); OPIATE SCREEN,URINE NEGATIVE (NEGATIVE); PHENCYCLIDINE SCREEN,URINE NEGATIVE (NEGATIVE)
[2020-10-24 21:35] LABS: BACTERIA,URINE None Seen /HPF (None Seen); SQUAMOUS EPITHELIAL CELL,UR Rare /LPF (None Seen); SULFOSALICYLIC ACID,URINE 3+ (Negative); WBC,URINE 0-2 /HPF (0-5)
[2020-10-24] MEDS ORDERED: LORazepam 2 MG/ML VIAL IVP ONE (23:30)
[2020-10-24] MEDS ORDERED: ONDANSETRON HCL 4 MG/2 ML VIAL IVP ONE (23:30)
[2020-10-24] MEDS ORDERED: SODIUM CHLORIDE 0.9% 1,000 ML IV ONE (23:30)
[2020-10-25] VITALS (7 sets, daily range): BP systolic 139–163; BP diastolic 87–97
[2020-10-25 03:17] LABS: CHOL/HDL RATIO 2.1 (4.2-7.3)
[2020-10-25] MEDS: LORazepam 2 MG TABLET PO PRN ×5 (05:03→21:23)
[2020-10-25] MEDS ORDERED: LOPERAMIDE HCL 2 MG CAPSULE PO PRN (08:15)
[2020-10-25] MEDS ORDERED: BENZOCAINE/MENTHOL LOZENGE PO PRN (08:15)
[2020-10-25] MEDS ORDERED: MAGNESIUM HYDROXIDE SUSPENSION 30 ML UDCUP PO PRN (08:15)
[2020-10-25] MEDS ORDERED: ALBUTEROL SULFATE HFA 90 MCG/PUFF 8 GM INHALER IH PRN (08:15)
[2020-10-25] MEDS ORDERED: ACETAMINOPHEN 325 MG TABLET PO PRN (08:15)
[2020-10-25] MEDS ORDERED: CloNIDine HCL 0.1 MG TABLET PO PRN (08:15)
[2020-10-25] MEDS ORDERED: PETROLATUM,WHITE 28 GM JELLY TP PRN (08:15)
[2020-10-25] MEDS ORDERED: ONDANSETRON HCL 4 MG TABLET PO PRN (08:15)
[2020-10-25] MEDS ORDERED: OMEPRAZOLE 20 MG CAPSULE PO PRN (08:15)
[2020-10-25] MEDS ORDERED: IBUPROFEN 600 MG TABLET PO PRN (08:15)
[2020-10-25] MEDS ORDERED: BACITRACIN 28 GM OINTMENT TP PRN (08:15)
[2020-10-25] MEDS ORDERED: MAG HYDROX/AL HYDROX/SIMETH ES 30 ML SUSPENSION UDCUP PO PRN (08:15)
[2020-10-25] MEDS ORDERED: DOCUSATE SODIUM 100 MG CAPSULE PO PRN (08:15)
[2020-10-25] MEDS: MULTIVITAMINS WITH MINERALS, THERAPEUTIC TABLET PO SCH (14:52)
[2020-10-25] MEDS: FOLIC ACID 1 MG TABLET PO SCH (14:52)
[2020-10-25] MEDS: THIAMINE 100 MG TABLET PO SCH (14:52)
[2020-10-25] MEDS: ZOLPIDEM TARTRATE 10 MG TABLET PO PRN (20:09)
[2020-10-26] VITALS (9 sets, daily range): BP systolic 140–165; BP diastolic 89–99
[2020-10-26] MEDS: LORazepam 2 MG TABLET PO PRN (00:59)
[2020-10-26] MEDS ORDERED: LORazepam 2 MG TABLET PO PRN (07:00)
[2020-10-26 07:05] LABS: BASOPHILS % (AUTO) 0.9 % (0.0-2.0); EOSINOPHILS % (AUTO) 0.9 % (1.0-6.0); HEMATOCRIT 45.5 % (41-53); HEMOGLOBIN 15.4 g/dL (13.5-17.5); LYMPHOCYTES # (AUTO) 1.6 K/uL (1.0-4.8); LYMPHOCYTES % (AUTO) 26.8 % (22.0-44.0); MEAN CORPUSCULAR HGB CONC 33.7 G/dL (31.0-37.0); MEAN CORPUSCULAR VOLUME 101 fL (80-100); MONOCYTES # (AUTO) 0.6 K/uL (0.1-1.0); MONOCYTES % (AUTO) 10.3 % (2.0-9.0); NEUTROPHILS # (AUTO) 3.7 K/uL (1.8-7.7); NEUTROPHILS % (AUTO) 61.1 % (40.0-70.0); PLATELET COUNT (AUTO) 191 K/uL (150-450); RED BLOOD CELL COUNT(AUTO) 4.51 MIL/uL (4.50-5.90); RED CELL DISTRIBUTION WIDTH 12.2 % (11.5-14.5)
[2020-10-26 07:42] LABS: HEMOGLOBIN A1C 5.4 % (3.8-5.6)
[2020-10-26 07:45] LABS: ALANINE AMINOTRANSFERASE 121 U/L (12-78); ALBUMIN 3.9 g/dL (3.4-5.0); ALKALINE PHOSPHATASE 94 U/L (46-116); ANION GAP 9 mmol/L (8-16); ASPARTATE AMINOTRANSFERASE 93 U/L (15-37); BILIRUBIN,TOTAL 1.2 mg/dL (0.1-1.0); CALCIUM, TOTAL 9.3 mg/dL (8.8-10.5); CARBON DIOXIDE 28 mmol/L (22-29); CHLORIDE 101 mmol/L (98-107); CREATININE 0.88 mg/dL (0.60-1.30); FREE T4 (FREE THYROXINE) 1.17 ng/dL (0.76-1.46); GLOMERULAR FILTR. RATE CALC > 60 mL/min (>60); GLUCOSE,RANDOM 102 mg/dL (70-110); POTASSIUM 3.8 mmol/L (3.5-5.1); SODIUM SERUM 138 mmol/L (136-145); TOTAL PROTEIN, SERUM 7.3 g/dL (6.4-8.2); UREA NITROGEN, BLOOD 13 mg/dL (7-18)
[2020-10-26] MEDS: FOLIC ACID 1 MG TABLET PO SCH (08:38)
[2020-10-26] MEDS: LORazepam 2 MG TABLET PO SCH ×4 (08:38→20:36)
[2020-10-26] MEDS: MULTIVITAMINS WITH MINERALS, THERAPEUTIC TABLET PO SCH (08:38)
[2020-10-26] MEDS: THIAMINE 100 MG TABLET PO SCH (08:38)
[2020-10-27 01:00] VITALS: BP 160/101
[2020-10-27] MEDS: ZOLPIDEM TARTRATE 10 MG TABLET PO PRN ×2 (01:38→22:14)
[2020-10-27 10:24] VITALS: BP 158/105
[2020-10-27 10:25] VITALS: BP 158/105
[2020-10-27] MEDS: THIAMINE 100 MG TABLET PO SCH (10:58)
[2020-10-27] MEDS: MULTIVITAMINS WITH MINERALS, THERAPEUTIC TABLET PO SCH (10:58)
[2020-10-27] MEDS: FOLIC ACID 1 MG TABLET PO SCH (10:58)
[2020-10-27] MEDS: CITALOPRAM HYDROBROMIDE 20 MG TABLET PO SCH (10:58)
[2020-10-27] MEDS: LORazepam 2 MG TABLET PO SCH ×4 (10:58→20:44)
[2020-10-27 17:00] VITALS: BP 164/93
[2020-10-28 05:55] VITALS: BP 129/81
[2020-10-28] MEDS ORDERED: LORazepam 1 MG TABLET PO PRN (07:00)
[2020-10-28 09:21] VITALS: BP 144/91
[2020-10-28 09:22] VITALS: BP 144/91
[2020-10-28] MEDS: MULTIVITAMINS WITH MINERALS, THERAPEUTIC TABLET PO SCH (09:41)
[2020-10-28] MEDS: THIAMINE 100 MG TABLET PO SCH (09:42)
[2020-10-28] MEDS: FOLIC ACID 1 MG TABLET PO SCH (09:42)
[2020-10-28] MEDS: CITALOPRAM HYDROBROMIDE 20 MG TABLET PO SCH (09:42)
[2020-10-28] MEDS: LORazepam 1 MG TABLET PO SCH ×4 (09:43→20:02)
[2020-10-28 16:00] VITALS: BP 141/101
[2020-10-28 16:52] VITALS: BP 141/101
[2020-10-28] MEDS: ZOLPIDEM TARTRATE 10 MG TABLET PO PRN (20:39)
[2020-10-29 02:08] VITALS: BP 137/89
[2020-10-29 02:29] VITALS: BP 139/100
[2020-10-29 08:00] VITALS: BP 154/80
[2020-10-29] MEDS: LORazepam 1 MG TABLET PO PRN ×2 (08:08→13:50)
[2020-10-29] MEDS: FOLIC ACID 1 MG TABLET PO SCH (08:08)
[2020-10-29] MEDS: CITALOPRAM HYDROBROMIDE 20 MG TABLET PO SCH (08:08)
[2020-10-29] MEDS: THIAMINE 100 MG TABLET PO SCH (08:09)
[2020-10-29] MEDS: MULTIVITAMINS WITH MINERALS, THERAPEUTIC TABLET PO SCH (08:09)
[2020-10-29 16:30] VITALS: BP 147/97
[2020-10-29 16:35] VITALS: BP 147/97
== END 2020-10-29 20:30 | disposition home or self-care (01) | DRG 754 ==
LOC: EMS 13:46 → 3EI 10-25 06:09
PROVIDERS: ADMIT Psychiatry & Neurology Psychiatry; ATTEND Psychiatry & Neurology Psychiatry
DX: F32.9 Major depressive disorder, single episode, unspecified (principal); I10 Essential (primary) hypertension; Z20.828 Contact with and (suspected) exposure to other viral communicable diseases; B19.20 Unspecified viral hepatitis C without hepatic coma; F41.9 Anxiety disorder, unspecified; G47.00 Insomnia, unspecified; G62.9 Polyneuropathy, unspecified; K59.00 Constipation, unspecified; F12.90 Cannabis use, unspecified, uncomplicated; K21.9 Gastro-esophageal reflux disease without esophagitis; Z79.899 Other long term (current) drug therapy
CPT/HCPCS: 83036; 84439; 84443; 87081; 87426; 93005; G0480; G0481; J2060; J2405; J7030; Q0162

== ENCOUNTER 2021-01-18 20:19 | Inpatient (IN) | payer MEDICAID ==
[~2021-01-18] VITALS: Ht 170.2 cm; Wt 81.1 kg
[~2021-01-18 20:19] MED LIST changes: -AMLO-257 PO; -BICT1TAB PO; -DOCU-275 PO; -GABA-1216 PO; -LEVE500T53 PO; -LISI-662 PO; -OMEP20 PO
[2021-01-18 20:39] LABS: ABG A-A DIFF O2 295.4 mmHg (10-20.0); ABG BASE EXCESS -2.3 mmol/L (-2.0-3.0); ABG CARBOXYHEMOGLOBIN 0.6 % (0.0-1.5); ABG HCO3 22.6 mmol/L (22.0-26.0); ABG METHEMOGLOBIN 0.3 % (0.0-1.5); ABG OXYGEN CONTENT 23.6 mL/dL (15.0-23.0); ABG OXYGEN SATURATION 99.8 % (95.0-98.0); ABG OXYHEMOGLOBIN 98.9 % (94.0-100.0); ABG PCO2 43 mmHg (35-45); ABG PH 7.354 (7.35-7.450); ABG TOTAL HEMOGLOBIN 16.3 G/dL (12.0-18.0); SOURCE, BLOOD GAS ARTERIAL; TEMPERATURE, FAHRENHEIT, BG 98.6 FAHREN (96.0-98.6)
[2021-01-18 20:40] LABS: O2 DEVICE,BLOOD GAS NRB (ROOM AIR); SITE, BLOOD GAS RT BRACHIAL
[2021-01-18] MEDS ORDERED: FLUMAZENIL 0.1 MG/ML 5 ML VIAL IVP ONE (20:45)
[2021-01-18] MEDS ORDERED: NALOXONE HCL 1 MG/ML 2 ML SYG IVP ONE (20:45)
[2021-01-18 20:51] LABS: BASOPHILS % (AUTO) 0.3 % (0.0-2.0); EOSINOPHILS % (AUTO) 0.2 % (1.0-6.0); HEMATOCRIT 49.5 % (41-53); HEMOGLOBIN 16.6 g/dL (13.5-17.5); LYMPHOCYTES # (AUTO) 2.9 K/uL (1.0-4.8); LYMPHOCYTES % (AUTO) 37.9 % (22.0-44.0); MEAN CORPUSCULAR HEMOGLOBIN 33.3 pg (26.0-34.0); MEAN CORPUSCULAR HGB CONC 33.6 G/dL (31.0-37.0); MEAN CORPUSCULAR VOLUME 99 fL (80-100); MONOCYTES # (AUTO) 0.6 K/uL (0.1-1.0); MONOCYTES % (AUTO) 8.3 % (2.0-9.0); NEUTROPHILS # (AUTO) 4.2 K/uL (1.8-7.7); NEUTROPHILS % (AUTO) 53.3 % (40.0-70.0); PLATELET COUNT (AUTO) 253 K/uL (150-450); RED BLOOD CELL COUNT(AUTO) 4.99 MIL/uL (4.50-5.90); RED CELL DISTRIBUTION WIDTH 12.2 % (11.5-14.5)
[2021-01-18 21:03] LABS: ANION GAP 15 mmol/L (8-16); CALCIUM, TOTAL 8.9 mg/dL (8.8-10.5); CARBON DIOXIDE 23 mmol/L (22-29); CHLORIDE 106 mmol/L (98-107); CREATININE 0.92 mg/dL (0.60-1.30); GLOMERULAR FILTR. RATE CALC > 60 mL/min (>60); GLUCOSE,RANDOM 115 mg/dL (70-110); POTASSIUM 4.1 mmol/L (3.5-5.1); PROTHROMBIN TIME 10.5 SEC (9.4-11.6); SODIUM SERUM 144 mmol/L (136-145); UREA NITROGEN, BLOOD 6 mg/dL (7-18)
[2021-01-18] MEDS ORDERED: SODIUM CHLORIDE 0.9% 100 ML ONE (21:08)
[2021-01-18] MEDS ORDERED: IOVERSOL 320 MG/ML 100 ML VIAL ONE (21:08)
[2021-01-18 21:09] LABS: ALANINE AMINOTRANSFERASE 49 U/L (12-78); ALBUMIN 4.2 g/dL (3.4-5.0); ALKALINE PHOSPHATASE 61 U/L (46-116); ASPARTATE AMINOTRANSFERASE 87 U/L (15-37); BILIRUBIN,TOTAL 0.1 mg/dL (0.1-1.0); TOTAL PROTEIN, SERUM 8.1 g/dL (6.4-8.2)
[2021-01-18 21:14] LABS: B-TYPE NATRIURETIC PEPTIDE 103 pg/mL (0-100)
[2021-01-18 21:15] LABS: SALICYLATE 0.7 mg/dL (2.8-20.0)
[2021-01-18 21:21] LABS: LITHIUM < 0.20 mmol/L (0.60-1.20)
[2021-01-18 21:27] LABS: LACTIC ACID 2.5 mmol/L (0.4-2.0)
[2021-01-18 22:05] LABS: COVID AG,FIA SOURCE NASOPHARYNGEAL
[2021-01-18 22:08] LABS: LIPASE 523 U/L (73-393)
[2021-01-18 22:09] LABS: ACETAMINOPHEN < 2 mcg/mL (10-30); CREATINE KINASE, TOTAL ONLY 1701 U/L (39-308); VALPROIC ACID < 3 mcg/mL (50-100)
[2021-01-18 22:13] LABS: APPEARANCE,URINE CLEAR (CLEAR); BILIRUBIN,URINE NEGATIVE (NEGATIVE); GLUCOSE, URINE (UA) NEGATIVE (NEGATIVE); KETONES,URINE NEGATIVE (NEGATIVE); LEUKOCYTE ESTERASE ,URINE NEGATIVE (NEGATIVE); NITRATE,URINE NEGATIVE (NEGATIVE); OCCULT BLOOD,URINE NEGATIVE (NEGATIVE); PROTEIN,URINE NEGATIVE (NEGATIVE); UROBILINOGEN,URINE 0.2 mg/dL (<=1.0)
[2021-01-18 22:19] LABS: AMPHET/METH SCREEN,URINE NEGATIVE (NEGATIVE); BARBITURATE SCREEN, URINE NEGATIVE (NEGATIVE); BENZODIAZEPINES SCREEN,URINE NEGATIVE (NEGATIVE); CANNABINOID SCREEN,URINE NEGATIVE (NEGATIVE); COCAINE SCREEN,URINE NEGATIVE (NEGATIVE); METHADONE SCREEN, URINE NEGATIVE (NEGATIVE); OPIATE SCREEN,URINE NEGATIVE (NEGATIVE); PHENCYCLIDINE SCREEN,URINE NEGATIVE (NEGATIVE)
[2021-01-18 22:27] LABS: BACTERIA,URINE None Seen /HPF (None Seen); RBC,URINE None Seen /HPF (0-2); SQUAMOUS EPITHELIAL CELL,UR Few /LPF (None Seen); WBC,URINE None Seen /HPF (0-5)
[2021-01-18] MEDS ORDERED: 0.9% SODIUM CHLORIDE 10 ML SYRINGE IVP PRN (22:30)
[2021-01-18] MEDS ORDERED: ONDANSETRON HCL 4 MG/2 ML VIAL IVP PRN ×2 (22:30→22:45)
[2021-01-18] MEDS ORDERED: ZOLPIDEM TARTRATE 5 MG TABLET PO PRN (22:45)
[2021-01-18] MEDS ORDERED: ACETAMINOPHEN 325 MG TABLET PO PRN (22:45)
[2021-01-18] MEDS ORDERED: BISACODYL 10 MG RECTAL RECTAL SUPPOSITORY PR PRN (22:45)
[2021-01-18] MEDS ORDERED: HYDROCODONE/ACETAMINOPHEN 5-325 MG TABLET PO PRN (22:45)
[2021-01-18] MEDS ORDERED: SODIUM CHLORIDE 0.9% 1,000 ML IV ONE (22:45)
[2021-01-18] MEDS ORDERED: MAGNESIUM HYDROXIDE SUSPENSION 30 ML UDCUP PO PRN (22:45)
[2021-01-18] MEDS ORDERED: MORPHINE SULFATE 2 MG/ML SYRINGE IVP PRN (22:45)
[2021-01-19] MEDS: HEPARIN SODIUM,PORCINE 5,000 UNITS/ML VIAL SQ SCH ×2 (02:00→08:50)
[2021-01-19 04:00] VITALS: BP 94/60
[2021-01-19 05:16] LABS: BASOPHILS % (AUTO) 0.4 % (0.0-2.0); EOSINOPHILS % (AUTO) 0.5 % (1.0-6.0); HEMATOCRIT 48.8 % (41-53); HEMOGLOBIN 15.6 g/dL (13.5-17.5); LYMPHOCYTES # (AUTO) 2.6 K/uL (1.0-4.8); LYMPHOCYTES % (AUTO) 36.1 % (22.0-44.0); MEAN CORPUSCULAR HEMOGLOBIN 32.8 pg (26.0-34.0); MEAN CORPUSCULAR HGB CONC 31.9 G/dL (31.0-37.0); MEAN CORPUSCULAR VOLUME 103 fL (80-100); MONOCYTES # (AUTO) 0.6 K/uL (0.1-1.0); MONOCYTES % (AUTO) 8.1 % (2.0-9.0); NEUTROPHILS % (AUTO) 54.9 % (40.0-70.0); PLATELET COUNT (AUTO) 254 K/uL (150-450); RED BLOOD CELL COUNT(AUTO) 4.75 MIL/uL (4.50-5.90); RED CELL DISTRIBUTION WIDTH 12.5 % (11.5-14.5)
[2021-01-19 06:08] LABS: ALANINE AMINOTRANSFERASE 46 U/L (12-78); ALBUMIN 3.6 g/dL (3.4-5.0); ALKALINE PHOSPHATASE 50 U/L (46-116); ANION GAP 11 mmol/L (8-16); ASPARTATE AMINOTRANSFERASE 71 U/L (15-37); BILIRUBIN,TOTAL 0.1 mg/dL (0.1-1.0); CARBON DIOXIDE 25 mmol/L (22-29); CHLORIDE 111 mmol/L (98-107); CREATINE KINASE, TOTAL ONLY 947 U/L (39-308); CREATININE 0.86 mg/dL (0.60-1.30); GLOMERULAR FILTR. RATE CALC > 60 mL/min (>60); GLUCOSE,RANDOM 103 mg/dL (70-110); POTASSIUM 4.5 mmol/L (3.5-5.1); SODIUM SERUM 147 mmol/L (136-145); TOTAL PROTEIN, SERUM 7.2 g/dL (6.4-8.2); UREA NITROGEN, BLOOD 5 mg/dL (7-18)
[2021-01-19 08:00] VITALS: BP 123/86
[2021-01-19] MEDS ORDERED: PANTOPRAZOLE SODIUM 40 MG DR TABLET PO SCH (09:00)
[2021-01-19] MEDS ORDERED: DOCUSATE SODIUM 100 MG CAPSULE PO SCH (09:00)
== END 2021-01-19 12:55 | disposition left against medical advice (07) | DRG 812 ==
LOC: EMS 20:22 → ICU 22:47
PROVIDERS: ADMIT Internal Medicine; ATTEND Internal Medicine
PROC: 5A12012 Performance of Cardiac Output, Single, Manual (ICD-10-PCS; principal; 2021-01-18)
DX: T50.911A Poisoning by multiple unspecified drugs, medicaments and biological substances, accidental (unintentional), initial encounter (principal); G92 Toxic encephalopathy; J96.00 Acute respiratory failure, unspecified whether with hypoxia or hypercapnia; F10.229 Alcohol dependence with intoxication, unspecified; G62.9 Polyneuropathy, unspecified; I10 Essential (primary) hypertension; F32.9 Major depressive disorder, single episode, unspecified; Z20.822 Contact with and (suspected) exposure to COVID-19; Y92.89 Other specified places as the place of occurrence of the external cause
CPT/HCPCS: 36600; 51702; 70496; 72125; 82805; 83605; 83735; 86850; 86900; 86901; 87040; 87426; 93005; 99291; G0378; G0480; G0481; J1644; J7030; J7050; 36415-L1; 36415-TC; 70450; 70450-TC; 71045-TC